=== PATIENT | female | born 1995 | race Caucasian/White ===

== ENCOUNTER 2017-02-02 07:53 | Outpatient (CLI) | payer MEDICAID ==
[~2017-02-02] VITALS: Ht 165.1 cm; Wt 63.7 kg
[~2017-02-02 07:53] MED LIST: ALBU8.5H2 IH; ALBU8.5H4 IH; CEFP500T4 PO; DOXY100C2 PO; ONDAN4ODT PO; depo provera
--- OUTSIDE RECORDS SUMMARY | 2017-02-02 07:57 | XMS REPORT | Continuity of Care Document ---
Author Author Interface Organization Interface Address Unknown Phone Unavailable Problems Problem Status Onset Date Classification Date Reported Comments Source Screening for Chlamydia trachomatis (procedure) Active Problem 09/18/2015 [facility] Well child visit (procedure) Active Problem 09/18/2015 [facility] Menorrhagia (finding) 2014 Diagnosis 09/18/2015 [facility] Urinary tract infectious disease (disorder) 09/14/2015 Diagnosis 09/18/2015 [facility] Dysmenorrhea 02/01/2015 Diagnosis 02/05/2015 [facility] Medications Medication Details Route Status Patient Instructions Ordering Provider Order Date Source No Known Medications No known medications Active [facility] Allergies, Adverse Reactions, Alerts Substance Category Reaction Severity Reaction type Status Date Reported Comments Source Acetaminophen / Dextromethorphan / Doxylamine Assertion Anaphylaxis (disorder) Drug allergy [facility] Immunizations Immunization Date Given Site Status Last Updated Comments Source No data available for this section No data available for this section [facility] Results Order Name Results Value Reference Range Date Interpretation Comments Source Vital Signs Vital Sign Value Date Comments Source Encounters Location Location Details Encounter Type Encounter Number Reason For Visit Attending Provider ADM Date DC Date Status Source [facility] [id number] Clinic ( Outpatient) [id number] Patricia Catnu 02/01/2015 Active [facility] [id number] Clinic ( Outpatient) [id number] Patricia P[place] 02/01/2015 Active [facility] [id number] Clinic ( Outpatient) [id number] Patricia Popes[place] 04/26/2015 Active [facility] [id number] Clinic ( Outpatient) [id number] Patricia [place] 05/10/2015 Active [facility] Cancel/No Show [id number] Anthony Shipman 07/26/2015 07/26/2015 [facility] Cancel/No Show [id number] Patricia Pepe 04/26/2015 04/26/2015 [facility] [id number] Patricia Cantu 05/10/2015 05/11/2015 [facility] [id number] Patricia Trang 09/14/2015 09/15/2015 [facility] [id number] Clinic ( Outpatient) [id number] Patricia Costello 09/14/2015 Active [facility] [id number] Clinic ( Outpatient) [id number] Anthony Shipman 07/26/2015 Active [facility] [place] [facility] [id number] Patricia Cantu 02/01/2015 02/02/2015 [facility] Procedures Procedure Code Date Perfomer Comments Source No data available for this section [facility]
[2017-02-02 08:00] VITALS: BP 120/65
[2017-02-02] MEDS ORDERED: FLU TRIvalent (5 YOA+) 2016-17 (AFLURIA) 0.5 ML IM ONE (09:45)
--- NOTE | 2017-02-02 09:56 | Diagnostic Imaging Report ---
Indication: New onset vaginal bleeding, . Comparison: None. Discussion: Limited transabdominal sonographic evaluation of the gravid uterus was performed. Single live intrauterine is demonstrated. Gestational age by last menstrual cycle is 24 weeks 2 days. EDC is 05/23/2017. heart rate measures 163 beats per minute. presentation is breech. Placenta is located posteriorly with no placenta previa. No placental abruption or acute abnormality is otherwise identified. No abnormal adnexal mass or fluid. Impression: 1. Single live intrauterine with no acute abnormality identified. Dictated by: Dictated on workstation # [id number]
--- NOTE | 2017-02-03 09:58 | Physician Query-Final Dx ---
[facility] 02/03/17 0958: Clinic Account Progress/Dx Physician Query: Please give diagnosis Date of Service Feb 02, 2017 at 07:53 CAROL KELLY MD 02/10/17 1801: Clinic Account Progress/Dx DIAGNOSIS: Diagnosis Vaginal bleeding during [facility] Feb 03, 2017 09:58 CAROL KELLY MD Feb 10, 2017 18:01
== END 2017-02-02 09:45 | disposition home or self-care (01) ==
LOC: LDRP 07:53 → WSo 07:53
PROVIDERS: ATTEND Family Medicine
DX: O46.92 Antepartum hemorrhage, unspecified, second trimester (principal); Z3A.24 24 weeks gestation of pregnancy
CPT/HCPCS: 76805; 99213

== ENCOUNTER 2017-04-07 15:00 | Outpatient (CLI) | payer MEDICAID ==
[~2017-04-07] VITALS: Ht 165.1 cm; Wt 68.5 kg
[2017-04-07 15:00] VITALS: BP 129/74
[2017-04-07 15:56] LABS: BILIRUBIN,URINE NEGATIVE (NEGATIVE); KETONES,URINE NEGATIVE (NEGATIVE); LEUKOCYTE ESTERASE ,URINE 2+ (NEGATIVE); NITRITE,URINE NEGATIVE (NEGATIVE); PH,URINE 8 (5-9); PROTEIN,URINE NEGATIVE (NEGATIVE); UROBILINOGEN,URINE NORMAL (NORMAL)
[2017-04-07] MEDS ORDERED: LIDOCAINE 1% INJ 20 ML (XYLOCAINE) VIAL INJ ONE (16:45)
[2017-04-07] MEDS ORDERED: cefTRIAXone 1 GM (ROCEPHIN) VIAL IM ONE (16:45)
[2017-04-07] MEDS ORDERED: CEPH-507 PO (16:52)
--- NOTE | 2017-04-08 11:32 | Physician Query-Final Dx ---
AVRIL CHURCH 04/08/17 1132: Clinic Account Progress/Dx Physician Query: Please give diagnosis Date of Service April 07, 2017 at 15:00 CAROL KELLY MD 04/08/17 2004: Clinic Account Progress/Dx DIAGNOSIS: Diagnosis Backpain Contractions Third Trimester UTI AVRIL CHURCH April 08, 2017 11:32 CAROL KELLY MD April 08, 2017 20:04
== END 2017-04-07 17:10 | disposition home or self-care (01) ==
LOC: LDRP 15:00 → WSo 15:00
PROVIDERS: ATTEND Family Medicine
DX: O60.03 Preterm labor without delivery, third trimester (principal); O23.43 Unspecified infection of urinary tract in pregnancy, third trimester; Z3A.34 34 weeks gestation of pregnancy
CPT/HCPCS: 81000; 87088; 96372; 99214

== ENCOUNTER 2017-05-07 15:05 | Outpatient (RCR) | payer MEDICAID ==
[2017-04-28 14:15] VITALS: BP 130/79
[2017-04-28] MEDS: IRON SUCROSE 300 MG/NS 250 ML (IVPB) IV SCH ×2 (14:40)
[2017-04-28 16:50] VITALS: BP 130/79
[~2017-05-07] VITALS: Ht 165.1 cm; Wt 68.5 kg
[~2017-05-07 15:05] MED LIST changes: +CEPH-507 PO; +RANI150T15 PO; +[UNRECOGNIZED DRUG - OTHER] PO
[2017-05-07 15:15] VITALS: BP 136/85
[2017-05-07] MEDS: IRON SUCROSE 300 MG/NS 250 ML (IVPB) IV SCH ×2 (15:20)
[2017-05-07 16:55] VITALS: BP 136/85
[2017-05-26] MEDS ORDERED: IBUP-1773 PO (09:41)
[2017-05-26] MEDS ORDERED: PNV1TABL67 PO (09:41)
== END 2017-07-27 | disposition home or self-care (01) ==
LOC: SDC 15:05
PROVIDERS: ATTEND Family Medicine
DX: O99.019 Anemia complicating pregnancy, unspecified trimester (principal); D64.9 Anemia, unspecified
CPT/HCPCS: 96365

== ENCOUNTER 2017-05-23 20:05 | Inpatient (IN) | payer MEDICAID ==
[2017-05-23] VITALS (7 sets, daily range): BP systolic 122–132; BP diastolic 66–81
[~2017-05-23] VITALS: Ht 165.1 cm; Wt 73.9 kg
[2017-05-23] MEDS ORDERED: MINERAL OIL CONCENTRATE 99.9% 15 ML UDC TOP PRN (20:30)
[2017-05-23] MEDS ORDERED: DINOPROSTONE 10 MG (CERVIDIL) INSERT PV ONE (20:30)
[2017-05-23] MEDS: D5 LR IV SOLUTION 1,000 ML IV SCH (20:55)
[2017-05-23] MEDS ORDERED: ZOLPIDEM 5 MG (AMBIEN) TAB PO PRN (21:00)
[2017-05-23 21:05] LABS: BASOPHILS % (AUTO) 0 % (0-10); EOSINOPHILS # (AUTO) 0.1 10^3/uL (0.0-0.3); EOSINOPHILS % (AUTO) 1 % (0-10); LYMPHOCYTES # (AUTO) 2.2 X 10^3 (1.0-4.0); LYMPHOCYTES % (AUTO) 22 % (12-44); MEAN CORPUSCULAR HEMOGLOBIN 27 PG (25-34); MEAN CORPUSCULAR HGB CONC 32 G/DL (32-36); MEAN CORPUSCULAR VOLUME 85 FL (80-99); MEAN PLATELET VOLUME 12.9 FL (7.4-10.4); MONOCYTES # (AUTO) 0.9 X 10^3 (0.0-1.0); MONOCYTES % (AUTO) 9 % (0-12); NEUTROPHILS # (AUTO) 6.6 X 10^3 (1.8-7.8); NEUTROPHILS % (AUTO) 68 % (42-75); PLATELET COUNT 167 10^3/uL (130-400); RED BLOOD COUNT 4.01 10^6/uL (4.35-5.85); RED CELL DISTRIBUTION WIDTH 21.7 % (10.0-14.5); WHITE BLOOD COUNT 9.7 10^3/uL (4.3-11.0)
[2017-05-23] MEDS: CATHETER FLUSH 10 ML SYR IV SCH (22:00)
[2017-05-24] VITALS (51 sets, daily range): BP systolic 110–144; BP diastolic 59–86
[2017-05-24] MEDS: ACETAMINOPHEN 500 MG TAB (TYLENOL) PO PRN (00:23)
[2017-05-24] MEDS: D5 LR IV SOLUTION 1,000 ML IV SCH ×3 (04:35→15:16)
[2017-05-24] MEDS ORDERED: fentaNYL INJECTION 100 MCG/2 ML AMP IVP ONE (05:45)
[2017-05-24] MEDS: CATHETER FLUSH 10 ML SYR IV SCH ×2 (06:07→22:43)
[2017-05-24] MEDS ORDERED: BUTORPHANOL INJ 2 MG/ML (STADOL) VIAL IV ONE (10:00)
--- NOTE | 2017-05-24 10:01 | History & Physical-OB ---
OB - Chief Complaint & HPI Date/Time Date of Admission: Date of Admission: May 23, 2017 at 8:05 pm Time Seen by Provider: 09:00 Chief Complaint/History OB-Reason for Admission/Chief: Induction of Labor (Post Dates) Hx : 1 Expected Date of Delivery: May 22, 2017 Gestational Age in Weeks: 40 Gestational Age in Days: 2 Indication for induction: post dates Allergies and Home Medications Allergies Coded Allergies: peanut (Unverified Allergy, Unknown, 02/02/17) FROM UNCODED ALLERGIES Uncoded Allergies: nyquil/dayquil (Allergy, Unknown, 08/07/12) Home Medications Ranitidine HCl 150 Mg Tablet, 150 MG PO BID, (Reported) OB - History Hx of Present Care: Yes (Started care in [place] then transferred to [place] in 3rd Trimester) Ultrasounds: Normal mid trimester US Obstetrical Complications: None Medical Complications: None Information Induced Hypertension: No Maternal Gestational Diabetes: No Hemorrhage: No Obstetrical History Hx : 1 Delivery History Hx Dystocia: No Hx Forceps Assisted Delivery: No Hx Vacuum Extraction Assisted: No Hx Placenta Abnormality: No Hx Distress: No Hx Large For Gestational Age I: No Hx Small for Gestational Age I: No Hx Section: No Hx Vaginal Delivery Post C-Sec: No Hx Blood Disorders: Yes (ANEMIA) Adverse Rxn to Tranfusion: No Patient Past Medical History Iron Deficiency Anemia Social History/Family History HIV/AIDS: No Recent Infectious Disease Expo: No Sexually Transmitted Disease: Yes (Chlymydia treated during ) Alcohol Use: Denies Use Recreational Drug Use: No Smoking Cessation: Never smoker Immunizations Tetanus Booster (TDap): Less than 5yrs Rubella: immune RPR/VDRL: Negative GBS Status: Negative HBsAG: Negative OB - Admission Exam Physical Exam Date Seen by Provider: May 24, 2017 Time Seen by Provider: 09:00 Vitals: Vital Signs 05/24/17 04:27 Temp 98.0 Pulse 86 Resp 18 B/P (MAP) 139/71 O2 Delivery Room Air HEENT: NCAT Heart: Rhythm Normal Lungs: Clear Abdomen: Non tender Extremities: Normal Reflexes: Normal Cervical Dilatation: 2cm Effacement: 75% Membranes: Intact Accelerations: Accelerations Present Decelerations: No Decelerations Short Term Variability: Present Labs Laboratory Tests Test 6/25/17 20:55 Range/Units White Blood Count 9.7 4.3-11.0 10^3/uL Red Blood Count 4.01 L 4.35-5.85 10^6/uL Hemoglobin 10.9 L 11.5-16.0 G/DL Hematocrit 34 L 35-52 % Mean Corpuscular Volume 85 80-99 FL Mean Corpuscular Hemoglobin 27 25-34 PG Mean Corpuscular Hemoglobin Concent 32 32-36 G/DL Red Cell Distribution Width 21.7 H 10.0-14.5 % Platelet Count 167 130-400 10^3/uL Mean Platelet Volume 12.9 H 7.4-10.4 FL Neutrophils (%) (Auto) 68 42-75 % Lymphocytes (%) (Auto) 22 12-44 % Monocytes (%) (Auto) 9 0-12 % Eosinophils (%) (Auto) 1 0-10 % Basophils (%) (Auto) 0 0-10 % Neutrophils # (Auto) 6.6 1.8-7.8 X 10^3 Lymphocytes # (Auto) 2.2 1.0-4.0 X 10^3 Monocytes # (Auto) 0.9 0.0-1.0 X 10^3 Eosinophils # (Auto) 0.1 0.0-0.3 10^3/uL Basophils # (Auto) 0.0 0.0-0.1 10^3/uL OB - Assessment/Plan/Diagnosis Assessment Assessment: induction of labor Plan Plan: Induction Induction Method: per Pitocin Protocol Other Plan 22 yo G1 @ 40.2 wga here for IOL for post dates Plan - Completed Cervidil - Start Pitocin - GBS neg - Desires Epidural for pain control Copy Copies To 1: CAROL KELLY MD, HOLLY R MD May 24, 2017 10:01
[2017-05-24] MEDS: OXYTOCIN/NORMAL SALINE 500 ML IV SCH ×2 (10:38→18:28)
[2017-05-24] MEDS ORDERED: SUFENTA 0.6MCG/ML BUPIVA 0.125 100 ML ONE (11:16)
[2017-05-24] MEDS ORDERED: fentaNYL INJECTION 100 MCG/2 ML AMP ONE (11:31)
[2017-05-24] MEDS ORDERED: BUPIVACAINE 0.25% 30 ML (SENSORCAINE) VIAL ONE (11:31)
[2017-05-24] MEDS ORDERED: LIDOCAINE PF 2% 5 ML (XYLOCAINE) VIAL ONE (11:31)
[2017-05-24] MEDS ORDERED: LACTATED RINGERS 1,000 ML IV ONE ×2 (12:21→14:15)
[2017-05-24] MEDS ORDERED: EPIDURAL (SUFENTA 0.6MCG/ML BUPIVA 0.125%) 100 ML BAG EPI SCH (12:30)
[2017-05-24] MEDS ORDERED: NALOXONE 0.4 MG/ML 1 ML (NARCAN) VIAL IV PRN (12:30)
[2017-05-24] MEDS ORDERED: CATHETER FLUSH 10 ML SYR IV PRN (12:30)
[2017-05-24] MEDS ORDERED: ONDANSETRON 4 MG/2 ML (SDV) Z0FRAN IV PRN (12:30)
[2017-05-24] MEDS ORDERED: LIDOCAINE/EPI 1%-1:200,000 (XYLOCAINE) 30 ML VIAL ONE (17:02)
[2017-05-24] MEDS ORDERED: OXYTOCIN/NORMAL SALINE 500 ML IV SCH (18:34)
--- NOTE | 2017-05-24 18:42 | OB Labor & Delivery Record ---
L&D History Date of Service Date of Service: May 24, 2017 History Expected Date of Delivery: May 22, 2017 Gestational Age in Weeks: 40 Hx : 1 Complications Events: Routine care (Late transfer of care) Operative Indications (Cesarea: N/A-Vaginal Delivery Intrapartal Events: None Other Complications Variable deceleration that improved with oxygen and position changes L&D Stage1 Stage One Onset of Labor - Date: May 24, 2017 Monitors and Tracing Monitor Mode: External Heart Rate: 135 Station: 0 Vital Signs VS - Last 72 Hours, by Label 05/23/17 05/23/17 05/23/17 05/23/17 20:16 21:10 21:40 22:10 Temp 98.0 Pulse 90 96 94 93 Resp 18 18 18 18 B/P (MAP) 129/77 124/77 132/74 124/81 O2 Delivery Room Air Room Air Room Air Room Air 05/23/17 05/23/17 05/23/17 05/24/17 22:45 23:10 23:40 00:11 Temp 97.8 Pulse 85 77 85 82 Resp 18 18 18 18 B/P (MAP) 128/71 122/66 126/66 116/59 O2 Delivery Room Air Room Air Room Air Room Air 05/24/17 05/24/17 05/24/17 05/24/17 04:27 09:00 10:00 10:45 Temp 98.0 97.4 Pulse 86 86 Resp 18 18 B/P (MAP) 139/71 126/85 O2 Delivery Room Air Room Air Room Air Room Air 05/24/17 05/24/17 05/24/17 05/24/17 11:00 11:15 11:30 11:40 Pulse 67 99 Resp 18 B/P (MAP) 124/76 142/74 Pulse Ox 99 O2 Delivery Room Air Room Air Room Air Room Air 05/24/17 05/24/17 05/24/17 05/24/17 11:45 11:50 11:55 12:00 Pulse 90 82 82 69 Resp 18 18 B/P (MAP) 129/86 134/83 110/70 114/69 Pulse Ox 99 100 99 99 O2 Delivery Room Air Room Air Room Air Room Air 05/24/17 05/24/17 05/24/17 05/24/17 12:03 12:06 12:09 12:12 Temp 97.0 Pulse 69 70 87 70 Resp 18 18 18 B/P (MAP) 114/67 110/65 111/63 115/62 Pulse Ox 99 99 O2 Delivery Room Air Room Air Room Air Room Air 05/24/17 05/24/17 05/24/17 05/24/17 12:15 12:18 12:21 12:26 Pulse 70 68 63 70 Resp 18 18 18 18 B/P (MAP) 116/62 115/60 114/61 118/82 Pulse Ox 99 O2 Delivery Room Air Room Air Room Air Room Air 05/24/17 05/24/17 05/24/17 05/24/17 12:30 12:35 12:37 12:40 Pulse 76 68 74 63 Resp 18 18 B/P (MAP) 118/62 126/69 125/74 124/72 Pulse Ox 100 100 100 O2 Delivery Room Air Room Air Room Air Room Air 05/24/17 05/24/17 05/24/17 05/24/17 12:45 12:55 13:00 13:10 Pulse 71 68 70 69 Resp 18 18 18 B/P (MAP) 128/79 118/73 Pulse Ox 100 100 99 O2 Delivery Room Air Room Air Room Air Room Air 05/24/17 05/24/17 05/24/17 05/24/17 13:15 13:25 13:30 13:40 Temp 96.8 Pulse 57 73 B/P (MAP) 125/69 138/86 O2 Delivery Non Rebreather Non Rebreather Non Rebreather Non Rebreather O2 Flow Rate 15.00 15.00 15.00 15.00 05/24/17 05/24/17 05/24/17 05/24/17 13:45 14:00 14:15 14:30 Pulse 64 80 80 Resp 18 18 18 18 B/P (MAP) 119/66 119/66 113/66 O2 Delivery Non Rebreather Non Rebreather Non Rebreather Room Air O2 Flow Rate 15.00 15.00 15.00 05/24/17 05/24/17 05/24/17 05/24/17 14:45 15:00 15:15 15:30 Pulse 84 86 80 69 Resp 18 18 18 18 B/P (MAP) 129/70 128/80 120/74 120/68 O2 Delivery Room Air Room Air Room Air Room Air 05/24/17 05/24/17 05/24/17 05/24/17 15:45 16:00 16:15 16:30 Temp 98.0 Pulse 73 75 75 73 Resp 18 18 18 18 B/P (MAP) 130/71 126/72 117/74 124/68 O2 Delivery Room Air Room Air Room Air Room Air 05/24/17 16:45 Pulse 75 Resp 18 B/P (MAP) 130/75 O2 Delivery Room Air Rupture of Membranes Amniotic Membrane Rupture Time: 1055 Amniotic Membrane Fluid Desc.: Clear Induction/Anesthesia Epidural Cath Placement - Time: 1151 L&D Stage2 Stage Two Stage II Date: May 24, 2017 Stage II Time: 17:53 Monitors and Tracing Monitor Mode: External Heart Rate: 135 Short Term Variability: Present Position: Left Occiput Anterior Presentation: Vertex Cord Descript/Complications Cord Vessel Description: 3 Vessels Delivery Type Infant Delivery Method: Spontaneous Vaginal Anterior Shoulder: Right Episiotomy/Perineal Laceration Laceraction(s)/Extensions: Yes Episiotomy Description: Perineal Extension/lac, 1st degree Location Modifier: Proximal Sutures Used: Vicryl Degree (describe repair) 1st degree repair with running suture. Good hemostasis Condition of Delivery Delivery Date & Time: 05/24/2017 1753 1 minute Comment: 9 5 minute Comment: 9 Condition of Condition of : Living Exam: No Observed Abnormalities Resuscitation Resuscitation: N/A - Spontaneous Resp L&D Stage3 Stage Three Stage III Date: May 24, 2017 Stage III Time: 17:58 Pictocin Pitocin Administration mu/min: 0 Pitocin ml/hr: 0 Pitocin Administration Comment: 1310 pitocin stopped due to decelerations noted. Placenta Delivery Placenta Delivery: Spontaneous Delivery Summary Summary Vaginal blood loss >500ml: No 200 Attending at delivery: Carol Chavira MD Condition of Delivery Examined: Cervix Examined Post Hemorrhage: No Condition of Mother Stable in delivery room Condition of (s) Stable in delivery room with parents CAROL CHAVIRA MD May 24, 2017 18:42
[2017-05-24] MEDS ORDERED: MEASLES,MUMPS,RUBELLA 1 EA INJ SQ ONE (18:45)
[2017-05-24] MEDS ORDERED: BENZOCAINE/MENTHOL (DERMOPLAST) 56 ML CAN TP PRN (18:45)
[2017-05-24] MEDS ORDERED: HYDROcodone/APAP 5 MG/325 MG (LORTAB) TAB PO PRN (18:45)
[2017-05-24] MEDS: IBUPROFEN 600 MG (MOTRIN) TAB PO SCH (19:00)
--- OUTSIDE RECORDS SUMMARY | 2017-05-24 19:40 | XMS REPORT | Continuity of Care Document ---
Author Author Formerly [facility] Address Unknown Phone Unavailable Allergies Active Description Code Type Severity Reaction Onset Reported/Identified Relationship to Patient Clinical Status Yes DayQuil Sinus Pressure/Pain Drug Allergy N/A N/A 10/30/2014 Medications Problems Date Dx Coded Attending Type Code Diagnosis Diagnosed By 10/30/2014 ANDREI ROLDAN APRN 787.01 NAUSEA WITH VOMITING 10/30/2014 ANDREI ROLDAN APRN V25.9 CONTRACEPTION MANAGEMENT 10/30/2014 ANDREI ROLDAN APRN 626.9 MENSTRUATION AND OTHER ABNORMAL BLEEDING FROM FEMALE GENITAL TRACT Procedures Code [place] [address] TEST, URINE (IN-HOUSE) 10/30/2014 J1050 DEPO PROVERA 12/2013 35969 THERAPUTIC INJ SQ/IM 10/30/2014 Results Encounters ACCT No. Visit Date/Time Discharge Status Pt. Type Provider Facility Loc./Unit Complaint [id number] 10/30/2014 16:30:00 10/30/2014 23: 59:59 CLS Outpatient ANDREI ROLDAN APRN
--- OUTSIDE RECORDS SUMMARY | 2017-05-24 19:40 | XMS REPORT | Continuity of Care Document ---
Author Author [facility] Organization [facility] Address Unknown Phone Unavailable Care Team Providers Care Bladder Cleaner Name Role Phone [facility] Unavailable Unavailable Problems Problem Status Onset Date Classification Date Reported Comments Source Menorrhagia (finding) 2014 Diagnosis 09/18/2015 [facility] Urinary tract infectious disease (disorder) 09/14/2015 Diagnosis 09/18/2015 [facility] Dysmenorrhea 02/01/2015 Diagnosis 02/05/2015 [facility] Screening for Chlamydia trachomatis (procedure) Active Problem 09/18/2015 [facility] Well child visit (procedure) Active Problem 09/18/2015 [facility] Medications Medication Details Route Status Patient Instructions Ordering Provider Order Date Source No Known Medications No known medications Active [facility] Allergies, Adverse Reactions, Alerts Substance Category Reaction Severity Reaction type Status Date Reported Comments Source Acetaminophen / Dextromethorphan / Doxylamine Assertion Anaphylaxis (disorder) Drug allergy [facility] Immunizations Immunization Date Given Site Status Last Updated Comments Source No data available for this section No data available for this section [facility] Results Vital Signs Encounters Location Location Details Encounter Type Encounter Number Reason For Visit Attending Provider ADM Date DC Date Status Source [facility] [id number] Clinic ( Outpatient) [id number] Patricia Cantu 02/01/2015 Active [facility] [id number] Patricia Cantu 02/01/2015 02/02/2015 [facility] [id number] Clinic ( Outpatient) [id number] Patricia Cantu 04/26/2015 Active [facility] [id number] Patricia Cantu 05/10/2015 05/11/2015 [facility] [id number] Clinic ( Outpatient) [id number] Anthony Shipman 07/26/2015 Active [facility] [id number] Patricia Trang 09/14/2015 09/15/2015 [facility] Procedures Procedure Code Date Perfomer Comments Source No data available for this section [facility] Plan of Care Social History Assessment and Plan Family History Value Date Source Advance Directives Order Name Results Value Date Source
[2017-05-24] MEDS ORDERED: CATHETER FLUSH 10 ML SYR IV SCH (22:00)
[2017-05-25 00:45] VITALS: BP 127/73
[2017-05-25] MEDS: IBUPROFEN 600 MG (MOTRIN) TAB PO SCH ×4 (00:47→21:33)
[2017-05-25] MEDS: WITCH HAZEL(TUCKS) 40 EA JAR TOP PRN (00:48)
[2017-05-25 04:00] VITALS: BP 117/70
[2017-05-25 07:08] LABS: BASOPHILS % (AUTO) 0 % (0-10); EOSINOPHILS # (AUTO) 0.1 10^3/uL (0.0-0.3); EOSINOPHILS % (AUTO) 1 % (0-10); LYMPHOCYTES # (AUTO) 2.1 X 10^3 (1.0-4.0); LYMPHOCYTES % (AUTO) 19 % (12-44); MEAN CORPUSCULAR HEMOGLOBIN 27 PG (25-34); MEAN CORPUSCULAR HGB CONC 31 G/DL (32-36); MEAN CORPUSCULAR VOLUME 86 FL (80-99); MONOCYTES # (AUTO) 1.1 X 10^3 (0.0-1.0); MONOCYTES % (AUTO) 10 % (0-12); NEUTROPHILS # (AUTO) 7.9 X 10^3 (1.8-7.8); NEUTROPHILS % (AUTO) 70 % (42-75); PLATELET COUNT 132 10^3/uL (130-400); RED CELL DISTRIBUTION WIDTH 21.8 % (10.0-14.5); WHITE BLOOD COUNT 11.2 10^3/uL (4.3-11.0)
[2017-05-25 08:45] VITALS: BP 116/76
[2017-05-25] MEDS: PRENATAL VITAMIN 1 EA TAB PO SCH (08:57)
--- NOTE | 2017-05-25 09:51 | Progress Note (SOAP) ---
Subjective Subjective/Events-last exam No concerns this AM. Pain controlled with PO pain medications. Tolerating ambulation and PO diet. Lochia same as normal period no clots Review of Systems Date Seen by Provider: May 25, 2017 Time Seen by Provider: 09:05 Pulmonary: No Dyspnea, No Cough Cardiovascular: No: Chest Pain Gastrointestinal: No: Abdominal Pain, Nausea, Vomiting Genitourinary: No Dysuria, No Frequency Objective Exam Last Set of Vital Signs Vital Signs Date Time Temp Pulse Resp B/P (MAP) Pulse Ox O2 Delivery O2 Flow Rate FiO2 05/25/17 08:45 98.0 96 18 116/76 99 Room Air 05/24/17 14:15 15.00 Capillary Refill : I&O Intake and Output 05/25/17 00:00 Intake Total 5775 ml Balance 5775 ml Intake Oral 400 ml IV Total 5375 ml # Voids 4 General: Alert, Oriented X3, Cooperative, No Acute Distress Lungs: Clear to Auscultation, Normal Air Movement Heart: Regular Rate, No Murmurs Abdomen: Normal Bowel Sounds, Soft, No Tenderness, Other (fundus firm below umbilicus) Extremities: No Edema, No Tenderness/Swelling Psych/Mental Status: Mental Status NL, Mood NL Results/Procedures Lab Laboratory Tests 05/25/17 06:41: White Blood Count 11.2H, Red Blood Count 3.60L, Hemoglobin 9.6L, Hematocrit 31L , Mean Corpuscular Volume 86, Mean Corpuscular Hemoglobin 27, Mean Corpuscular Hemoglobin Concent 31L, Red Cell Distribution Width 21.8H, Platelet Count 132, Mean Platelet Volume 13.0H, Neutrophils (%) (Auto) 70, Lymphocytes (%) (Auto) 19 , Monocytes (%) (Auto) 10, Eosinophils (%) (Auto) 1, Basophils (%) (Auto) 0, Neutrophils # (Auto) 7.9H, Lymphocytes # (Auto) 2.1, Monocytes # (Auto) 1.1H, Eosinophils # (Auto) 0.1, Basophils # (Auto) 0.0 Assessment/Plan Assessment/Plan Plan G1 now P1 mother del term female via , PPD#1 Plan - Pain controlled with PO meds, encourage ambulation - Bleeding stable, Hgb 9.2 - Bottle feeding with some difficultly due to not wanting to take formula , denies spitting up - Continue PNV - Plan to d/c home tomorrow with 6 week f/u Fan Diagnosis/Problems: Clinical Quality Measures DVT/VTE Risk/Contraindication: Risk Factor Score Per Nursin RFS Level Per Nursing on Admit: 1=Low/No VTE PPX CAROL KELLY MD May 25, 2017 09:51
--- NOTE | 2017-05-25 12:27 | Anesthesia-Regional Post-Op ---
Regional Patient Condition Mental Status: Alert, Oriented x3 Circulation: Same as Pre-Op Headache: Absent Sensation: Full Recovery Motor Block: Absent Post Op Complications Complications None Follow Up Care/Instructions Patient Instructions None needed. Anesthesia/Patient Condition Patient is doing well, no complaints, stable vital signs, no apparent adverse anesthesia problems. Ambulating with no problem, c/o minor back soreness at epidural insertion site. BRYN MONTILLA CRNA May 25, 2017 12:27
[2017-05-25 12:30] VITALS: BP 116/76
[2017-05-25] MEDS: ACETAMINOPHEN 500 MG TAB (TYLENOL) PO PRN (13:00)
[2017-05-25 16:30] VITALS: BP 125/75
[2017-05-25 21:33] VITALS: BP 120/80
[2017-05-26 03:14] VITALS: BP 120/74
[2017-05-26] MEDS: IBUPROFEN 600 MG (MOTRIN) TAB PO SCH ×2 (03:14→09:58)
[2017-05-26 09:00] VITALS: BP 116/70
--- NOTE | 2017-05-26 09:39 | Discharge Summary ---
Diagnosis/Chief Complaint Date of Admission May 23, 2017 at 20:05 Date of Discharge 05/26/2017 Admission Diagnosis Admission Diagnosis Post date Induction of Labor Discharge Diagnosis Term delivery of female Chief Complaint/HPI Chief Complaint/HPI Presented to L&D for scheduled IOL for post dates. G1 @ 40.2 wga. GBS neg Discharge Summary-Simple/Stand Procedures Epidural Discharge Physical Examination Allergies: Coded Allergies: peanut (Unverified Allergy, Unknown, 02/02/17) FROM UNCODED ALLERGIES Uncoded Allergies: nyquil/dayquil (Allergy, Unknown, 08/07/12) Vitals & I&Os Vital Sign - Last 12Hours Date Time Temp Pulse Resp B/P (MAP) Pulse Ox O2 Delivery O2 Flow Rate FiO2 05/26/17 03:14 96.8 92 18 120/74 98 Room Air 05/24/17 14:15 15.00 General Appearance: Alert, Oriented X3, Cooperative, No Acute Distress HEENT: Atraumatic, PERRLA Respiratory: Clear to Auscultation, Normal Air Movement Cardiovascular: Regular Rate, No Murmurs Abdominal: Normal Bowel Sounds, Soft, No Tenderness Extremities: No Edema, No Tenderness/Swelling Skin: No Rashes, No Breakdown Neuro: Cranial Nerves 3-12 NL Psych/Mental Status: Mental Status NL, Mood NL Hospital Course See final discharge diagnosis. Discussion & Recommendations 22 yo F delivered term female infant via @ 40.3 wga. Discharge Condition at discharge Stable Instructions to patient/family Please see electonic discharge instructions given to patient. Discharge Medications Reviewed and agree with Discharge Medication list on patient's Discharge Instruction sheet Clinical Quality Measures DVT/VTE Risk/Contraindication: Risk Factor Score Per Nursin RFS Level Per Nursing on Admit: 1=Low/No VTE PPX Copy Copies To 1: CAROL KELLY MD, HOLLY R MD May 26, 2017 09:39
[2017-05-26] MEDS ORDERED: IBUP-1773 PO (09:41)
[2017-05-26] MEDS ORDERED: PNV1TABL67 PO (09:41)
--- NOTE | 2017-05-26 09:43 | Discharge Instructions ---
Discharge Inst-[facility] Serv Depart Medications New, Converted or Re-Newed RX: Call to Patients Pharmacy Final Diagnosis Term Vaginal Delivery Iron Deficiency Anemia New Medications: Ibuprofen (Ibuprofen) 600 Mg Tablet 600 MG PO Q6H for 60 Days, TAB Pnv with Ca,No.72/Iron/FA (Pnv Plus Multivit Tab) 1 Each Tablet 1 EA PO DAILY@0700 for 90 Days, TAB Discontinued Medications: Ranitidine HCl (Zantac) 150 Mg Tablet 150 MG PO BID, TAB Follow Up/Instructions Goal/Follow Up: Follow up with Dr Chavira in 6 weeks for post visit Activity Activity: Activity as Tolerated Driving Instructions: You May Drive NO SMOKING: NO SMOKING Nothing Inside Vagina: No Douching, No [place], No Tampons Diet Discharge Diet: No Restrictions Symptoms to Report to : Bleeding Excessive, Fever Over 101 Degrees F, Pain/ Pressure in Chest, Cramps in Feet or Legs, Vaginal Discharge Foul, Dizziness/ Fainting, Shortness of Breath For Any Problems or Questions: Contact Your Physician Copies To 1: CAROL CHAVIRA MD, HOLLY R MD May 26, 2017 09:43
[2017-05-26] MEDS: PRENATAL VITAMIN 1 EA TAB PO SCH (09:57)
[2017-05-26] MEDS: WITCH HAZEL(TUCKS) 40 EA JAR TOP PRN (10:35)
[2017-05-26 12:50] VITALS: BP 116/70
== END 2017-05-26 12:50 | disposition home or self-care (01) | DRG 775 ==
LOC: LDRP 20:05
PROVIDERS: ADMIT Family Medicine; ATTEND Family Medicine
PROC: 10E0XZZ Delivery of Products of Conception, External Approach (ICD-10-PCS; principal; 2017-05-24)
PROC: 0HQ9XZZ Repair Perineum Skin, External Approach (ICD-10-PCS; 2017-05-24)
DX: O48.0 Post-term pregnancy (principal); O99.013 Anemia complicating pregnancy, third trimester; D64.9 Anemia, unspecified; O76 Abnormality in fetal heart rate and rhythm complicating labor and delivery; O70.0 First degree perineal laceration during delivery; Z3A.40 40 weeks gestation of pregnancy; Z37.0 Single live birth
CPT/HCPCS: 36415; 85025; 86850; 86900; 86901